=== PATIENT | female | born 1975 | race Caucasian/White ===

== ENCOUNTER 2024-06-05 17:03 | Emergency (ER) | payer MEDICAID ==
[~2024-06-05] VITALS: Ht 152.4 cm; Wt 84.0 kg
[2024-06-05] MEDS: PREDNISONE 20MG TABLET PO ONE (21:11)
[2024-06-05] MEDS: ACETAMINOPHEN 325MG TABLET PO ONE (21:11)
[2024-06-05] MEDS ORDERED: ALBU18HF2 IH (22:14)
[2024-06-05] MEDS ORDERED: P50 MT (22:14)
[2024-06-05] MEDS: ALBUTEROL (0.083%) 2.5MG/3ML NEB HHN ONE (22:20)
[2024-06-05 22:26] VITALS: PULSE 68; RESP 18; O2SAT 98
[2024-06-05 22:33] VITALS: BP 122/66; PULSE 70; RESP 20; TEMP 36.94740; O2SAT 100
== END 2024-06-05 22:41 | disposition home or self-care (01) ==
LOC: ER 17:03
DX: B34.9 Viral infection, unspecified (principal); Z90.710 Acquired absence of both cervix and uterus
CPT/HCPCS: 71045; 94640; 99283; J7512; Z7610 ×3